=== PATIENT | female | born 1950 | race Caucasian/White ===

== ENCOUNTER → 2023-09-18 09:59 | Outpatient (REF) | payer MEDICARE, BC, SELFPAY | LOC: RAD 09:59 | PROVIDERS: ATTENDING PHYSICIAN Internal Medicine; REFERRING PHYSICIAN Nurse Practitioner Adult Health | DX: N39.0 Urinary tract infection, site not specified (principal); R10.9 Unspecified abdominal pain; R31.29 Other microscopic hematuria | CPT/HCPCS: 74176 ==

== ENCOUNTER → 2024-03-02 11:49 | Outpatient (REF) | payer MEDICARE, BC, SELFPAY | LOC: HWRAD 11:49 | PROVIDERS: ATTENDING PHYSICIAN Internal Medicine | DX: R10.9 Unspecified abdominal pain (principal); R31.29 Other microscopic hematuria | CPT/HCPCS: 74176 ==

== ENCOUNTER → 2024-04-08 10:35 | Outpatient (REF) | payer MEDICARE, BC, SELFPAY | LOC: RAD 10:35 | PROVIDERS: ATTENDING PHYSICIAN Internal Medicine | DX: R10.9 Unspecified abdominal pain (principal) | CPT/HCPCS: 73502 ==

== ENCOUNTER → 2024-04-28 06:25 | Day surgery (SDC) | payer MEDICARE, BC, SELFPAY ==
[2024-04-28 09:25] LABS: Glucose - Point of Care 165 mg/dl (70-99)
== END ==
LOC: GI 06:25
PROVIDERS: ATTENDING PHYSICIAN Internal Medicine
DX: Z12.11 Encounter for screening for malignant neoplasm of colon (principal); R10.32 Left lower quadrant pain; K64.8 Other hemorrhoids; K58.9 Irritable bowel syndrome, unspecified; D17.5 Benign lipomatous neoplasm of intra-abdominal organs; K57.30 Diverticulosis of large intestine without perforation or abscess without bleeding; K55.20 Angiodysplasia of colon without hemorrhage
CPT/HCPCS: 45380; 88305; 82962; 93005

== ENCOUNTER → 2024-05-21 15:53 | Outpatient (REF) | payer MEDICARE, BC, SELFPAY | LOC: RCS 15:53 | PROVIDERS: ATTENDING PHYSICIAN Internal Medicine Cardiovascular Disease; FAMILY PHYSICIAN Internal Medicine | DX: I48.0 Paroxysmal atrial fibrillation (principal) | CPT/HCPCS: 93306 ==

== ENCOUNTER → 2024-07-05 11:12 | Outpatient (REF) | payer MEDICARE, BC, SELFPAY | LOC: MRI 11:12 | PROVIDERS: ATTENDING PHYSICIAN Nurse Practitioner Acute Care; FAMILY PHYSICIAN Internal Medicine | DX: M25.559 Pain in unspecified hip (principal) | CPT/HCPCS: 72197; A9575 ==

== ENCOUNTER 2024-11-28 17:27 | Emergency (ER) | payer MEDICARE, BC, SELFPAY ==
[2024-11-28] VITALS (7 sets, daily range): BP systolic 128–213; BP diastolic 61–102
[2024-11-28 17:59] LABS: % Basophils 0.8 % (0-2); % Eosinophils 1.4 % (0-6); % Immature Granulocytes 0.4 % (0-0.5); % Lymphocytes 23.1 % (20.5-51.1); % Monocytes 6.4 % (1.7-9.3); % Neutrophils 67.9 % (42.2-75.2); Absolute Basophils 0.1 10^3/uL (0-0.2); Absolute Eosinophils 0.1 10^3/uL (0-0.7); Absolute Lymphocytes 2.2 10^3/uL (1.2-3.4); Absolute Monocytes 0.6 10^3/uL (0.1-0.6); Absolute Neutrophils 6.5 10^3/uL (1.4-6.5); Hematocrit 45.4 % (37.0-47.0); Mean Corpuscular Volume 90.8 fL (81.0-99.0); Mean Platelet Volume 10.5 fL (7.4-10.4); Nucleated Red Blood Cells % 0 %; Platelet Count 205 10^3/uL (130-400); Red Cell Dist. Width 13.2 % (11.5-14.5); White Blood Cell Count 9.6 10^3/uL (4.8-10.8)
[2024-11-28 18:08] LABS: INR 1.07; PT 14.3 Sec (11.4-14.6)
[2024-11-28 18:12] LABS: ALT (SGPT) 44 U/L (0-35); AST (SGOT) 28 U/L (14-36); Albumin 4.5 g/dl (3.5-5.0); Alkaline Phosphatase 61 U/L (38-126); Blood Urea Nitrogen 14 mg/dl (7-17); Calcium 9.6 mg/dl (8.4-10.2); Carbon Dioxide 25 mmol/L (22-30); Chloride 110 mmol/L (98-107); Glucose 166 mg/dl (70-99); Potassium 4.4 mmol/L (3.5-5.1); Sodium 144 mmol/L (135-145); Total Bilirubin 0.5 mg/dl (0.2-1.3); Total Protein 7.4 g/dl (6.3-8.2); eGFR > 60.00
[2024-11-28 18:22] LABS: Troponin I < 0.012 ng/ml
--- NOTE | 2024-11-28 21:44 | ED.GENMED ---
History of Present Illness
General
Chief Complaint: Chest Pain
Time Seen by Provider: 11/28/24 20:58
History of Present Illness
History of Present Illness:
Patient is a 74-year-old woman with history of diabetes, hypertension presenting to the emergency department with chest pain. Patient states for the past 3 weeks she has had vague right-sided shoulder and chest pain. She thought it was
musculoskeletal. The pain is not exertional. She does state that she has known cervical radiculopathy and occasionally get numbness tingling's in her hands. She also notes that she is felt a pulsing sensation in her abdomen. No lightheadedness
dizziness. No nausea or vomiting. She is never had this feeling before.
Past History
Past History
ED Past Medical History: HTN, NIDDM and Hypothyroidism
ED Past Surgical History: Appendectomy, Gynecological, Orthopedic and Other (Pituitary tumor resection)
Patient has exhibited threatening behavior?: No
PSI?: No
Social History
Tobacco: Non-smoker
Personal:
Phy Exam
Physical Exam
Physical Exam:
GENERAL: in no acute distress
HEENT: normocephalic, extraocular movements intact, moist oral mucosa
NECK: normal inspection
RESPIRATORY: no respiratory distress, clear to auscultation bilaterally
CARDIOVASCULAR: regular rate and rhythm, 2+ radial pulse
ABDOMEN/: soft, non-distended, non-tender to palpation, no rebound or guarding
EXTREMITIES: non-tender, no edema/swelling
NEUROLOGIC: awake and alert, moves all extremities
SKIN: warm
Scores
Heart Score for Chest Pain Patients
STEMI patient?: No
History: Slightly or Non-Suspicious
ECG: Normal
Age: >/= 65 years
Risk Factors: 1 or 2 Risk Factors
Troponin: </= Normal Limit
Heart Score for Chest Pain Patients: 3
Heart Score Risk: 2.5% MACE over next 6 weeks
Course
Orders/Labs/Results
Orders:
Orders
11/28/24 17:37
Electrocardiogram (*1) Urgent
Reason for Study: Chest Pain
EKG- Treatment ONCE
11/28/24 17:50
Complete Blood Count/With Diff Urgent
Comprehensive Metabolic Panel Urgent
Prothrombin Time Urgent
Troponin I Urgent
11/28/24 21:18
Electrocardiogram (*1) Urgent
Reason for Study: Chest Pain
CT Chest/abd/pelvis Angio W/wo Urgent
Comment:
Reason For Exam: pulsating sensation abd, chest arm pain
EKG- Treatment ONCE
11/28/24 21:27
Troponin I Urgent
Abnormal Lab Results
11/28/24
17:50
MPV 10.5 H fL
(7.4-10.4)
Chloride 110 H mmol/L
(98-107)
Glucose 166 H mg/dl
(70-99)
ALT 44 H U/L
(0-35)
11/28/24 17:50
11/28/24 17:50
Vital Signs
Initial and Last Documented VS:
Initial Vital Signs
Pulse Resp BP Pulse Ox
73 16 149/76 97
11/28/24 17:35 11/28/24 17:35 11/28/24 17:35 11/28/24 17:35
Last Documented Vital Signs
Pulse Resp BP Pulse Ox
63 22 156/67 97
11/28/24 23:00 11/28/24 23:00 11/28/24 23:00 11/28/24 23:00
MDM/Problems Addressed
Differential Diagnosis Includes:
Patient is a 74-year-old woman presenting to the emergency department with chest pain arm pain and a pulsating sensation in her abdomen. Vitals initially were unremarkable though while patient was in the room she did have a few blood pressure
readings in the 200s. During the elevated blood pressure readings patient was asymptomatic. During my evaluation her blood pressure did improve to the 160s. Patient does attribute it to the stress and anxiety. Exam is reassuring. However given
fluids no symptoms concern for atypical ACS or dissection or aneurysm. Ruptured AAA less likely given patient's stable vital signs. The pain could be due to patient cervical radiculopathy as well. Blood work obtained prior to evaluation is
unremarkable. Will obtain delta troponin. Will obtain CT dissection protocol.
*Critical Care Note
Total Time (30-74mins, 75-104mins- exclusive of procedures): Not Applicable
Update Note
Update Note:
Delta troponin negative. CT read by vision preliminary negative for dissection or AAA. On reassessment patient remains pain-free. Patient advised to call cardiology on Saturday to schedule an appointment. Will discharge patient at this time.
ED Attending Note
-
Portions of this chart may have been created with voice recognition software.� Occasional wrong word or��sound alike� substitutions may have occurred due to the inherent limitations of voice recognition software.
Discharge Plan
Departure
Patient Disposition: Home (Routine Discharge)
Date of Disposition: 11/29/24
Time of Disposition: 00:09
Patient with high blood pressure during this ER visit?: No
Discharge Problem:
Chest pain
Instructions: Chest Pain NON-DHP Toxicologist Follow Up
Prescriptions:
No Action
metformin 500 MG tablet
500 mg PO DAILY
citalopram 10 MG tablet
15 mg PO DAILY
levothyroxine 75 MCG tablet
75 mcg PO DAILY
gabapentin 100 MG capsule
100 mg PO BID
losartan 100 MG tablet
500 mg PO DAILY
cholecalciferol (vitamin D3) 2,000 UNIT tablet,chewable
2,000 unit PO DAILY
ertugliflozin [Steglatro] 15 MG tablet
15 mg PO DAILY
oxycodone-acetaminophen 5 MG/325 MG tablet
1 tab PO Q4HPRN PRN (Reason: Pain) Qty: 15 0RF
Referrals:
Xavier Garcia MD [Family Provider] -
Activity Restrictions/Additional Instructions:
You were evaluated in the Emergency Department today for chest pain. Your evaluation has shown no signs of medical conditions requiring emergent intervention at this time, however we recommend that you follow up with your primary care physician or
your cut off tender glass as soon as possible for further testing as an outpatient.
Please schedule an appointment for follow up with your primary care physician as soon as possible.
Return to the Emergency Department if you experience worsening or uncontrolled chest pain, shortness of breath, light headedness, feeling faint, nausea, vomiting, or any other concerning symptoms.
Thank you for choosing us for your care.
Interventions
Interventions:
*Risk Screen - Suicide Last Done: 11/28/24 17:35
*General Assessment Last Done: 11/28/24 19:44
*Neglect/Abuse Screening Last Done: 11/28/24 17:35
*ED- Fall Risk Assessment Last Done: 11/28/24 19:44
ED- Cardiac Assessment Last Done: 11/28/24 19:44
Discharge Date and Time
Print Language: TELUGU
[2024-11-28 22:00] LABS: Troponin I < 0.012 ng/ml
[2024-11-29] VITALS: BP 128/73
== END 2024-11-29 00:30 | disposition home or self-care (01) ==
LOC: EMR 17:27
PROVIDERS: Student in an Organized Health Care Education/Training Program; EMERGENCY PHYSICIAN Student in an Organized Health Care Education/Training Program; FAMILY PHYSICIAN Internal Medicine
DX: R07.89 Other chest pain (principal); M25.511 Pain in right shoulder; E11.9 Type 2 diabetes mellitus without complications; I10 Essential (primary) hypertension; M54.12 Radiculopathy, cervical region; E03.9 Hypothyroidism, unspecified; Z79.84 Long term (current) use of oral hypoglycemic drugs
CPT/HCPCS: 99285; 71275; 74174; 80053; 84484; 85025; 85610; 93005; Q9967

== ENCOUNTER 2025-06-18 15:00 | Emergency (ER) | payer MEDICARE, BC, SELFPAY ==
[2025-06-18 15:03] VITALS: BP 175/87
--- NOTE | 2025-06-18 16:58 | ED.GENMED ---
History of Present Illness
General
Chief Complaint: Dizziness
Source: patient
Exam Limitations: none
Time Seen by Provider: 06/18/25 16:24
History of Present Illness
History of Present Illness:
74-year-old female presents with onset of dizziness starting this morning. She is describes a room spinning sensation with associated nausea and vomiting. It is made worse with position changes. There is no associated headache double vision loss
of vision slurred speech or extremity weakness. She is not anticoagulated. She was seen by her family doctor yesterday routinely was told she had wax in her ears but the symptoms started today. No recent fever or illness. No other complaints
Past History
Past History
ED Past Medical History: HTN, NIDDM and Hypothyroidism
ED Past Surgical History: Appendectomy, Gynecological, Orthopedic and Other (Pituitary tumor resection)
Patient has exhibited threatening behavior?: No
PSI?: No
Social History
Tobacco: Non-smoker
Personal:
Phy Exam
Physical Exam
Physical Exam:
General: Well-appearing female no acute respiratory
HEENT: Normocephalic pupils equal round react light bilateral external auditory canals occluded with cerumen extract motions intact but there is some horizontal nystagmus noted
Heart: Regular rate and rhythm
Lungs: Clear no wheeze
Neurologic exam: Alert and oriented no facial asymmetry dysarthria or aphasia. Finger-nose [id number] intact. Good strength to the upper and lower extremities without any drift. [place]-Hallpike is positive for reproducing dizziness when she lays
flat turning her head to the left.
Extremities: No cyanosis
Course
Orders/Labs/Results
Orders:
Orders
06/18/25 15:10
EKG [Electrocardiogram (*1)] Urgent
Reason for Study: Vertigo / Dizzy
06/18/25 15:11
EKG- Treatment ONCE
06/18/25 16:54
0.9% Sodium Chloride 1000 ml [Nss] 1,000 ml IV BOLUS
Meclizine [Antivert] 25 mg PO NOW STA
Ondansetron Injectable [Zofran] 4 mg IV NOW STA
06/18/25 17:18
Complete Blood Count/With Diff Urgent
Comprehensive Metabolic Panel Urgent
06/18/25 19:12
CT Head W/o Iv Contrast Urgent
Comment:
Reason For Exam: dizziness
diazePAM [Valium Injection] 2 mg IV NOW STA
Abnormal Lab Results
06/18/25
17:18
RBC 5.53 H 10^6/uL
(4.20-5.40)
Hgb 16.2 H g/dL
(12.0-16.0)
Hct 47.9 H %
(37.0-47.0)
Abs Immat Gran (auto) 0.1 H 10^3/uL
(0-0.05)
Absolute Neuts (auto) 8.6 H 10^3/uL
(1.4-6.5)
Neutrophils % 83.9 H %
(42.2-75.2)
Lymphocytes % 11.8 L %
(20.5-51.1)
Creatinine 0.5 L mg/dL
(0.6-1.0)
Glucose 154 H mg/dl
(70-99)
AST 45 H U/L
(14-36)
ALT 72 H U/L
(0-35)
06/18/25 17:18
06/18/25 17:18
Vital Signs
Initial and Last Documented VS:
Initial Vital Signs
Temp Pulse Resp BP Pulse Ox
97.5 F 67 18 175/87 98
06/18/25 15:03 06/18/25 15:03 06/18/25 15:03 06/18/25 15:03 06/18/25 15:03
Last Documented Vital Signs
Temp Pulse Resp BP Pulse Ox
97.5 F 77 14 132/63 100
06/18/25 15:03 06/18/25 20:41 06/18/25 20:41 06/18/25 20:41 06/18/25 20:41
MDM/Problems Addressed
Differential Diagnosis Includes:
Problem 1: Bilateral external auditory canal cerumen impaction. This was remedied with bilateral ear canal irrigation. All cerumen was removed and patient hearing improved
Problem #2: Dizziness. Likely positional vertigo. No sign of neurologic deficit. [place]-Hallpike supports this with horizontal nystagmus. Could be related to problem #1 however will check labs hydrate treat with Zofran fluids and meclizine.
*Pulse Oximetry
SaO2: 98
Oxygen Mode of Delivery: Room air
Patient hypoxic: no
*Critical Care Note
Total Time (30-74mins, 75-104mins- exclusive of procedures): Not Applicable
Update Note
Update Note:
Patient evaluated after receiving Zofran meclizine and subsequently Valium. She states her dizziness has improved. CT of the head was ordered which was negative. Patient reassured by this. I suspect peripheral vertigo. Will prescribe Valium for
her to take at home for dizziness as the meclizine did not help. Will also refer to outpatient physical therapy for vestibular rehab. Return precautions were given
ED Attending Note
-
Portions of this chart may have been created with voice recognition software.� Occasional wrong word or��sound alike� substitutions may have occurred due to the inherent limitations of voice recognition software.
Discharge Plan
Departure
Patient Disposition: Home (Routine Discharge)
Date of Disposition: 06/18/25
Time of Disposition: 21:35
Patient with high blood pressure during this ER visit?: No
Discharge Problem:
Vertigo
Instructions: Vertigo (a Type of Dizziness) (DC)
Prescriptions:
New
ondansetron 4 mg tablet,disintegrating
4 mg PO TID PRN (Reason: nausea and vomiting) Qty: 10 0RF
diazepam [Valium] 2 mg tablet
2 mg PO TID PRN (Reason: dizziness) Qty: 10 0RF
No Action
metformin 500 MG tablet
500 mg PO DAILY
citalopram 10 MG tablet
15 mg PO DAILY
levothyroxine 75 MCG tablet
75 mcg PO DAILY
gabapentin 100 MG capsule
100 mg PO BID
losartan 100 MG tablet
500 mg PO DAILY
cholecalciferol (vitamin D3) 2,000 UNIT tablet,chewable
2,000 unit PO DAILY
ertugliflozin [Steglatro] 15 MG tablet
15 mg PO DAILY
oxycodone-acetaminophen 5 MG/325 MG tablet
1 tab PO Q4HPRN PRN (Reason: Pain) Qty: 15 0RF
Referrals:
Xavier Garcia MD [Family Provider, Internal Medicine]
Activity Restrictions/Additional Instructions:
Use Zofran if needed for nausea. Follow-up with vestibular rehab. Return if worse otherwise
Interventions
Interventions:
*Risk Screen - Suicide Last Done: 06/18/25 18:27
*Neglect/Abuse Screening Last Done: 06/18/25 18:27
*ED COVID-19 Vaccine History Last Done: 06/18/25 15:03
*ED Influenza Vaccine History Last Done: 06/18/25 15:03
[facility] Fall Risk Assessment Tool Last Done: 06/18/25 19:30
ED- Neurological Assessment Last Done: 06/18/25 16:30
ED Swallowing Screen Last Done: 06/18/25 17:36
Discharge Date and Time
Print Language: IRISH
[2025-06-18] MEDS: ANTIVERT 25 MG PO (17:22)
[2025-06-18] MEDS: NSS 1000 IV (17:22)
[2025-06-18] MEDS: ZOFRAN 4 MG IV (17:22)
[2025-06-18 17:26] LABS: Hematocrit 47.9 % (37.0-47.0); Hemoglobin 16.2 g/dL (12.0-16.0); Mean Corp Hgb Conc. 33.8 g/dL (33.0-37.0); Mean Corpuscular Volume 86.6 fL (81.0-99.0); Nucleated Red Blood Cells % 0 %; Platelet Count 220 10^3/uL (130-400); Red Cell Dist. Width 12.9 % (11.5-14.5)
[2025-06-18 17:40] LABS: ALT (SGPT) 72 U/L (0-35); AST (SGOT) 45 U/L (14-36); Albumin 5.0 g/dl (3.5-5.0); Alkaline Phosphatase 72 U/L (38-126); Blood Urea Nitrogen 13 mg/dl (7-17); Calcium 9.9 mg/dl (8.4-10.2); Carbon Dioxide 25 mmol/L (22-30); Chloride 104 mmol/L (98-107); Glucose 154 mg/dl (70-99); Potassium 4.4 mmol/L (3.5-5.1); Sodium 138 mmol/L (135-145); Total Protein 8.2 g/dl (6.3-8.2); eGFR > 60.00
[2025-06-18 19:18] VITALS: BP 132/69
[2025-06-18] MEDS: VALIUM INJECTION 2 MG IV (19:27)
[2025-06-18 19:30] VITALS: BMI 38.2
[2025-06-18 20:00] VITALS: BP 134/61
[2025-06-18 20:41] VITALS: BP 132/63
[2025-06-18 21:00] VITALS: BP 135/57
== END 2025-06-18 21:54 | disposition home or self-care (01) ==
LOC: EMR 15:00
PROVIDERS: Physician Assistant; EMERGENCY PHYSICIAN Emergency Medicine; FAMILY PHYSICIAN Internal Medicine
DX: R42 Dizziness and giddiness (principal); I10 Essential (primary) hypertension; E11.9 Type 2 diabetes mellitus without complications; E03.9 Hypothyroidism, unspecified; H61.23 Impacted cerumen, bilateral
CPT/HCPCS: 96374; 96375; 96361; 99284; 70450; 80053; 85025; 93005